=== PATIENT | female | born 1985 | race Hispanic/Latino ===

== ENCOUNTER → 2018-02-01 | Day surgery (SDC) | payer BC ==
[~2018-02-01] MED LIST: BENTYL10 MG/1 ML IV; BUPIVACAINE 0.25%/EPI 30ML SDV INJ ONE; DEXAMETHASONE SOD PHOS INJ 4 MG/ML VIAL ONE; FENTANYL CITRATE/PF 100MCG/2 ML INJ ONE; GLYCOPYRROLATE INJ 1MG/ 5 ML SYR ONE; HYDROCODONE/APAP 7.5MG-325MG 1 EA TAB ONE; KETOROLAC TROMETHAMINE 30 MG/ML VIAL ONE; LIDOCAINE HCL 2% LOCAL INJ 5 ML SDV VIAL INJ ONE; MIDAZOLAM HCL 2 MG/2 ML VIAL ONE; NEOSTIGMINE 5 MG/5ML SYR ONE; ONDANSETRON HCL INJ 2 MG/ML VIAL ONE; PROPOFOL IV EMULSION 10 MG/ML 20 ML VIAL ONE; ROCURONIUM BROMIDE 10 MG/ML 5ML VIAL ONE; SEVOFLURANE INHAL SOLN 250 ML PEN BTL ONE; ULTRAM 50MG50 MG PO
--- NOTE | 2018-02-01 13:52 | Operative Report ---
DATE OF PROCEDURE: February 01, 2018 PREOPERATIVE DIAGNOSIS: Cholecystitis and cholelithiasis. POSTOPERATIVE DIAGNOSIS: Cholecystitis and cholelithiasis. OPERATION PERFORMED: Laparoscopic cholecystectomy. ANESTHESIA: General. COMPLICATIONS: None. ESTIMATED BLOOD LOSS: Minimal. DESCRIPTION OF PROCEDURE: With the patient lying in bed in the supine position under good general endotracheal anesthesia, the abdomen was prepped with Betadine solution and draped in the usual manner. A Veress needle was introduced into the umbilicus and pneumoperitoneum was established without any difficulty. An 11-mm trocar was placed into the umbilicus, and a 10 mm video laparoscope was placed into the intra-abdominal cavity. Under direct vision, three 5-mm trocars were placed in the right subcostal region. Video laparoscopy at this point revealed the patient's uterus was stuck to the anterior abdominal wall from the patient's previous , as well as the left ovary and tube were stuck to the anterior abdominal wall. The rest the abdominal exploration was normal other than the gallbladder that was distended and contained multiple stones. There were adhesions from the duodenum and stomach to the lower half of the gallbladder. All of the adhesions of the gallbladder were then slowly and carefully taken down. The peritoneum overlying the neck of the gallbladder was then opened. The cystic duct was identified and followed to its junction with the common duct. Cystic duct was then circumferentially dissected away from the common duct, doubly clipped and divided. The cystic artery was similarly doubly clipped and divided. Gallbladder was then slowly and carefully taken off the liver bed using the cautery scissors and perfect hemostasis was ascertained. The gallbladder was grasped through the umbilical port and removed without any difficulty. Video laparoscopy was then again carried out. The liver bed was inspected for bleeding and there was none. The gallbladder was again removed through the umbilicus, and all the excess fluid was aspirated. The pneumoperitoneum was evacuated. All the trocars were removed under direct vision. The midline fascia at the umbilicus was then closed with a figure-of-8 of 0 Vicryl. All layers were infiltrated on the way out with a solution of 0.25% Marcaine. Subcutaneous tissue was approximated with 3-0 Vicryl and the skin was closed with subcuticular 5-0 Vicryl. Benzoin, Steri-Strips and Band-Aids were applied. The sponge, lap and needle count was correct. Patient tolerated the procedure well, and returned to the recovery room in stable condition. Job#: [id number] JUSTIN
[2018-02-01 14:00] VITALS: BP 115/70
== END | disposition home or self-care (01) ==
LOC: OR 08:35
PROVIDERS: ATTEND Surgery
DX: K80.10 Calculus of gallbladder with chronic cholecystitis without obstruction (principal); K82.8 Other specified diseases of gallbladder; Z88.6 Allergy status to analgesic agent
CPT/HCPCS: 47562; 81025; 88304; C1766; J1100; J1885; J2001; J2250; J2405; J3490